=== PATIENT | female | born 1950 | race Two or more races ===

== ENCOUNTER 2025-03-30 13:31 | Inpatient (IN) | payer OTHER ==
[~2025-03-30] VITALS: Ht 149.9 cm; Wt 81.2 kg
[2025-03-30] MEDS ORDERED: LANTUS SOL100 UNIT/1 SQ (13:42)
[2025-03-30] MEDS ORDERED: IRBESARTAN-HCT1 EAC1 PO (13:43)
[2025-03-30] MEDS ORDERED: HYDRALAZINE HCL50 MG PO (13:43)
[2025-03-30] MEDS ORDERED: ATORVASTATIN CA40 MG PO (13:43)
[2025-03-30] MEDS ORDERED: SYNJARDY XR 121 EACH PO (13:44)
[2025-03-30] MEDS ORDERED: PLAVIX75 MG PO (13:44)
[2025-03-30] MEDS ORDERED: ADULT LOW DOSE81 M1 PO (13:45)
[2025-03-30] MEDS ORDERED: KAPSPARGO SPRIN50 MG PO (13:46)
[2025-03-30] MEDS ORDERED: ONDANSETRON HCL 2 MG/ML VIAL IV STA (13:57)
[2025-03-30] MEDS ORDERED: KETOROLAC TROMETHAMINE 30 MG VIAL IV ONE (14:00)
[2025-03-30] MEDS ORDERED: 0.9 % SODIUM CHLORIDE 1,000 ML IV SCH (14:00)
[2025-03-30] MEDS ORDERED: KETOROLAC TROMETHAMINE 30 MG VIAL ONE (14:52)
[2025-03-30] MEDS ORDERED: ONDANSETRON HCL 2 MG/ML VIAL ONE (14:52)
[2025-03-30] MEDS ORDERED: DIATRIZOATE MEGLUMINE, SODIUM 30 ML BOTTLE ONE (14:53)
[2025-03-30 15:36] LABS: BASO % 0.2 % (0.1-1.2); EOS # 0.01 (0.04-0.54); EOS % 0.1 % (0.7-7.0); HEMATOCRIT 49.3 % (34.1-44.9); HEMOGLOBIN 16.2 g/dL (11.2-15.7); LYMPH # 1.45 (1.18-3.74); LYMPH % 13.5 % (19.3-53.1); MEAN CORPUSCULAR HEMOGLOBIN 28.5 pg (25.6-32.2); MONO # 0.53 (0.24-0.82); MONO % 4.9 % (4.7-12.5); NEUT # 8.68 (1.56-6.13); PLATELET COUNT 218 K/uL (163-369); RED BLOOD COUNT 5.68 M/uL (3.93-5.22); RED CELL DISTRIBUTION WIDTH 13.3 % (11.6-14.4)
[2025-03-30 15:57] LABS: CALCIUM 10.7 mg/dL (8.5-10.1); CREATININE SERUM 1.03 mg/dL (0.55-1.02); GFR 52.24; POTASSIUM 4.18 mEq/L (3.5-5.1)
[2025-03-30] MEDS ORDERED: FAMOTIDINE/PF 20 MG/2 ML VIAL ONE (18:10)
[2025-03-30] MEDS ORDERED: METRONIDAZOLE/SODIUM CHLORIDE 500 MG/100 ML PIGGYBACK IV ONE ×2 (18:10→18:15)
[2025-03-30] MEDS ORDERED: FAMOtidine 10 MG/ML (4ML VIAL) IV ONE (18:15)
[2025-03-30 18:38] LABS: URINE APPEARANCE Cloudy; URINE BILIRRUBIN Negative (NEGATIVE); URINE BLOOD Trace; URINE COLOR Yellow; URINE LEUKOCYTE Moderate; URINE NITRATE Negative; URINE PROTEIN 30 (NEGATIVE); URINE UROBILINOGEN 0.2 E.U./dl
[2025-03-30 18:40] LABS: URINE EPITHELIAL CELLS 24.5 uL (0.0-38.8); URINE WBC 1261.4 uL (0.0-23.2)
[2025-03-30 18:47] LABS: URINE CAST 0.14 uL (0.0-1.40); URINE GLUCOSE >=1000 MG/DL (NEGATIVE); URINE KETONE 40 (NEGATIVE)
[2025-03-30] MEDS ORDERED: MORPHINE SULFATE 2 MG/ML CARTRIDGE IV PRN (23:00)
[2025-03-30] MEDS ORDERED: INSULIN LISPRO 1,000 UNIT/10 ML UNITS SUBCUTANEO PRN (23:00)
[2025-03-30] MEDS ORDERED: ACETAMINOPHEN 325 MG TABLET PO PRN (23:00)
[2025-03-30] MEDS ORDERED: ONDANSETRON HCL 4 MG in 0.9 % SODIUM CHLORIDE 50 ML IV PRN (23:00)
[2025-03-30] MEDS ORDERED: DEXTROSE 50 % IN WATER 0.5 G/ML DISP.SYRIN IV PRN (23:00)
[2025-03-30] MEDS ORDERED: PIPERACILLIN/TAZOBACTAM SODIUM 3.375 GM VIAL IV ONE (23:35)
[2025-03-31] MEDS ORDERED: PIPERACILLIN/TAZOBACTAM SODIUM 3.375 GM in 0.9 % SODIUM CHLORIDE 100 ML IV SCH
[2025-03-31 02:37] VITALS: BP 122/86; O2SAT 94
[2025-03-31] MEDS ORDERED: METOPROLOL SUCCINATE 50 MG TAB.SR.24H PO SCH (09:00)
[2025-03-31] MEDS ORDERED: hydrALAZINE HCL 50 MG TABLET PO SCH (09:00)
[2025-03-31] MEDS ORDERED: ATORVASTATIN CALCIUM 40 MG TABLET PO SCH (09:00)
[2025-03-31] MEDS ORDERED: IRBESARTAN 300 MG TABLET PO SCH (09:00)
[2025-03-31 09:46] VITALS: BP 164/66; O2SAT 100
[2025-03-31 16:00] VITALS: BP 173/68; O2SAT 90
[2025-03-31] MEDS ORDERED: INSULIN GLARGINE,HUM.REC.ANLOG 1,000 UNITS/10 ML UNITS SUBCUTANEO SCH (21:00)
[2025-03-31] MEDS ORDERED: PANTOPRAZOLE SODIUM 40 MG/VIAL VIAL IV SCH (21:00)
[2025-03-31] MEDS ORDERED: ENALAPRILAT DIHYDRATE 1.25 MG/ML VIAL IV PRN (23:30)
[2025-04-01 02:00] VITALS: BP 140/62
[2025-04-01 08:52] VITALS: BP 176/67; O2SAT 94
[2025-04-01 16:00] VITALS: BP 197/77; O2SAT 91
[2025-04-02 08:32] VITALS: BP 182/70; O2SAT 91
[2025-04-02 12:24] LABS: ALBUMIN 2.9 gm/dL (3.4-5.0); BILIRUBIN TOTAL 0.79 mg/dL (0.3-1.2); CALCIUM 8.8 mg/dL (8.5-10.1); CREATININE SERUM 0.77 mg/dL (0.55-1.02); GFR 73.08; GLOBULINA 3.1 G/DL (2.4-3.5); POTASSIUM 4.37 mEq/L (3.5-5.1)
[2025-04-02 15:21] LABS: BASO % 0.3 % (0.1-1.2); EOS # 0.38 (0.04-0.54); EOS % 4.4 % (0.7-7.0); HEMATOCRIT 41.2 % (34.1-44.9); HEMOGLOBIN 13.5 g/dL (11.2-15.7); LYMPH # 2.04 (1.18-3.74); LYMPH % 23.7 % (19.3-53.1); MONO # 0.77 (0.24-0.82); NEUT # 5.32 (1.56-6.13); NEUT % 61.9 % (34.0-71.1); PLATELET COUNT 189 K/uL (163-369); RED BLOOD COUNT 4.66 M/uL (3.93-5.22); RED CELL DISTRIBUTION WIDTH 12.8 % (11.6-14.4)
[2025-04-02 16:43] VITALS: BP 177/69; O2SAT 95
[2025-04-03] VITALS: BP 156/63; O2SAT 95
[2025-04-03 08:00] VITALS: BP 180/67; O2SAT 95
[2025-04-03] MEDS ORDERED: PHENOL 177 ML BOTTLE MM SCH (09:00)
== END 2025-04-03 21:57 | disposition home or self-care (01) | DRG 390 ==
LOC: ER 13:31 → SURG 23:34
PROVIDERS: Emergency Medicine; ADMIT Internal Medicine; ATTEND Internal Medicine
PROC: BW21ZZZ Computerized Tomography (CT Scan) of Abdomen and Pelvis (ICD-10-PCS; principal; 2025-03-30)
DX: K56.699 Other intestinal obstruction unspecified as to partial versus complete obstruction (principal); E11.9 Type 2 diabetes mellitus without complications; Z79.4 Long term (current) use of insulin; I25.10 Atherosclerotic heart disease of native coronary artery without angina pectoris; I11.9 Hypertensive heart disease without heart failure